=== PATIENT | female | born 1955 | race Caucasian/White ===

== ENCOUNTER → 2017-11-27 | Outpatient (CLI) | payer BC ==
[~2017-11-27] MED LIST: Z.0.NO CURRENT MEDS
--- NOTE | 2017-11-28 | EKG ---
Date Performed: 11/27/2017 Time Performed: 09:11:36 PTAGE: 62 years EKG: Sinus rhythm WITH SINUS ARRHYTHMIA BORDERLINE LEFT AXIS DEVIATION LOW QRS VOLTAGE IN PRECORDIAL LEADS INCOMPLETE RIGHT BUNDLE BRANCH BLOCK BORDERLINE ECG Compared to PREVIOUS TRACING , rate has increased, and IRBBB DOCTOR: Warner Sargent Interpretating Date/Time 11/27/2017 23:59:21
== END ==
LOC: CPRE 08:58
PROVIDERS: ATTEND Orthopaedic Surgery
DX: Z01.810 Encounter for preprocedural cardiovascular examination (principal); M17.12 Unilateral primary osteoarthritis, left knee; M79.609 Pain in unspecified limb; M71.22 Synovial cyst of popliteal space [Baker], left knee; I45.10 Unspecified right bundle-branch block
CPT/HCPCS: 93005

== ENCOUNTER 2017-12-12 07:00 | Inpatient (IN) | payer BC ==
[~2017-12-12] VITALS: Ht 167.6 cm; Wt 71.6 kg
[2017-12-12] MEDS ORDERED: FAT EMULSION 20% INJ 0 ML ONE (08:19)
[2017-12-12] MEDS ORDERED: TRANEXAMIC ACID INJ 716 MG in SODIUM CHLORIDE 0.9% INJ 100 ML IV SCH ×2 (08:30→09:15)
[2017-12-12] MEDS ORDERED: EXPAREL PERI-ARTICULAR INJECTION (TOTAL VOL. 100 ML) P-ARTICULR SCH ×2 (08:30)
[2017-12-12] MEDS ORDERED: TRANEXAMIC ACID IV SCH (08:30)
[2017-12-12] MEDS ORDERED: CHLORHEXIDINE GLUCONATE 4% SOLN 120 ML BTL TOPICAL SCH (08:30)
[2017-12-12] MEDS ORDERED: SODIUM CHLORIDE 0.9% IV SCH (08:30)
[2017-12-12 08:32] VITALS: PULSE 60
[2017-12-12] MEDS ORDERED: SODIUM CHLORID 0.9% 500 ML IV PRN (08:45)
[2017-12-12] MEDS ORDERED: LACTATED RINGER'S 1000 ML IV PRN (08:45)
[2017-12-12] MEDS ORDERED: ceFAZolin 2 GM in NS 100 ML IV SCH (08:45)
[2017-12-12] MEDS ORDERED: CHLORHEXIDINE GLUCONATE 2 % 1 PACK (2 CLOTHS) TOPICAL PRN (08:45)
[2017-12-12] MEDS ORDERED: INSULIN HUMAN REGULAR 1,000 UNITS/10 ML VIAL SQ PRN (08:45)
[2017-12-12] MEDS ORDERED: POVIDONE IODINE 5% (ANTISEPSIS KIT) 4 APPLICATIONS EACH NARE PRN (08:45)
[2017-12-12] MEDS ORDERED: METOPROLOL TARTRATE 25 MG TAB PO PRN (08:45)
[2017-12-12] MEDS ORDERED: GENTAMICIN SULFATE 80 MG/2 ML VIAL ONE (09:21)
[2017-12-12] MEDS ORDERED: BUPIVACAINE LIPOSOME PF 1.3% 20 ML VIAL ONE (09:51)
[2017-12-12] MEDS ORDERED: MIDAZOLAM HCL 2 MG/2 ML VIAL ONE (09:51)
[2017-12-12] MEDS ORDERED: ONDANSETRON HCL 4 MG/2 ML VIAL IVP PRN (10:00)
[2017-12-12] MEDS ORDERED: MAGNESIUM HYDROXIDE SUSP 30 ML CUP PO PRN (10:00)
[2017-12-12] MEDS ORDERED: ZOLPIDEM TARTRATE 5 MG TAB PO PRN (10:00)
[2017-12-12] MEDS ORDERED: TRANEXAMIC ACID INJ 0 MG in SODIUM CHLORIDE 0.9% INJ 100 ML IV SCH (10:00)
--- NOTE | 2017-12-12 10:02 | HHI.FF ---
Face to Face Verification Diagnosis: (1) Status post total left knee replacement Physical Therapy Gait training Knee: Total knee, Protocol: Left, Gait training, Full weight bearing Left LE Weight Bearing: WB as tolerated Left LE Range of Motion: Active ROM (Active, active assisted, passive range of motion. Range of motion goal is 0 extension to 135 of flexion. Range of motion in the operating room was 0 extension to 150 of flexion.) Nursing Nursing: Dressing changes Dressing Changes: Daily dressing change, Coverderm/Primapore Additional Instructions Do not remove Dermabond Prineo. I have seen patient John Hdz on 12/12/17. My clinical findings support the need for the requested home health care services because: Ltd mobility - disease progression Limited ability to care for self High risk of falls I certify that my clinical findings support that this patient is homebound because: Post-op weakness Unsteady gait/balance Unsafe to leave home unassisted Leann Villalobos MD (Charles) December 12, 2017 10:02
[2017-12-12] MEDS ORDERED: ECASA81 PO (10:03)
[2017-12-12] MEDS ORDERED: BUPIVACAINE PF 0.75% DEX-WATER INJ 2 ML AMP ONE (10:05)
[2017-12-12] MEDS ORDERED: ACETAMINOPHEN 1000 MG/100 ML 100 ML IV ONE (10:05)
[2017-12-12] MEDS ORDERED: PROPOFOL 500 MG/50 ML INJ 100 ML ONE (10:07)
[2017-12-12] MEDS ORDERED: LIDOCAINE HCL 1% PF 5 ML AMPULE ONE (10:18)
[2017-12-12] MEDS ORDERED: ceFAZolin 2 GM PREMIX 50 ML ONE (10:24)
[2017-12-12] MEDS ORDERED: Post-op Orders (for Pharmacy) XX ONE (11:00)
[2017-12-12] MEDS ORDERED: HYDROmorphone HCL PF 0.5 MG/0.5 ML SYRINGE IV PUSH PRN (12:00)
[2017-12-12] MEDS ORDERED: traMADol HCL 50 MG TAB PO PRN ×2 (12:00)
[2017-12-12] MEDS ORDERED: KETOROLAC TROMETHAMINE 30 MG/ML (IVP) VIAL IVP SCH (12:00)
[2017-12-12] MEDS ORDERED: diphenhydrAMINE HCL 50 MG/ML VIAL ONE (13:00)
--- NOTE | 2017-12-12 13:06 | PD.OP ---
Operative Report Date of Surgery: December 12, 2017 Preoperative Diagnosis: (1) Primary osteoarthritis of left knee Postoperative Diagnosis: (1) Primary osteoarthritis of left knee Procedure: Left total knee arthroplasty using Allison Triathlon prosthesis (noncemented) Anesthesia: Spinal with supplemental adductor canal block regional and local with Exparel Surgeon: Trevor Villalobos MD Composition Worker(s): JIA Christian Operation and Findings: Indications and Findings: This 62-year-old woman has had long-standing pain in her left knee which has been treated with nonsteroidal anti-inflammatory agents exercises arthroscopic surgery and has not gotten any improvement. She has had pain in the knee predominantly in the patellofemoral joint but also medially. Imaging studies show some patellofemoral degenerative change particularly on the MRI that shows loss of articular cartilage to expose subchondral bone. The medial compartment also had areas of change that was significant. Operative findings: There was loss of articular cartilage to expose subchondral bone in the patellofemoral joint particularly on the medial side. There is also loss of articular cartilage to expose subchondral bone in the lateral aspect of the medial femoral condyle. There are degenerative changes throughout the knee with osteophytes as well. The prosthesis used was a Allison Triathlon prosthesis. The femur was a size 6, cruciate retaining, uncemented. The tibial baseplate was a size 5 Tritanium with a 9 mm cruciate retaining X3 polyethylene spacer. The patella was a size 35 mm asymmetric Tritanium backed. The patient was brought to the clean-air operating suite. A spinal anesthetic was administered as well as a regional anesthetic by adductor canal block. The position was supine with a small bolster under the hip on the operative side. A pneumatic tourniquet was applied to the upper thigh. The lower extremity was then prepped with alcohol, Hibiclens and ChloraPrep and draped in the usual manner with the knee draped free. An appropriate timeout procedure was carried out. An incision was made from about 3 fingerbreadths above the superior medial pole of patella down the tibial tubercle on the medial side. The incision was deepened through the subcutaneous tissue to the retinacular structures which were exposed medially and laterally. A medial retinacular incision was then made from the superior middle pole of patella down the tibial tubercle and up into the quadriceps tendon splitting it longitudinally and the medial one third. The patella was reflected. The infrapatellar fat pad was debulked. The anterior cruciate ligament was excised. Medial and lateral meniscectomies were initiated. Fenestrations were made in the distal femur and proximal tibia for intramedullary referencing guides. The distal femoral cutting guide and jig were then assembled for a 5, 8 mm cut. When this was fit position and placed cutting block was stabilized with pins. The jig was removed. The distal femoral cut was then completed with the oscillating saw. The sizing guide was then positioned in place along Whitesides line and the epicondylar axis and stabilized with pins. The femoral size was then determined as noted above. The 4-in-1 cutting block was then positioned in place. Anterior and posterior cuts were made followed by posterior and anterior chamfer cuts taking care to prevent injury to ligamentous structures. Osteophytes were then trimmed from the distal femur. A bone plug was then placed into the fenestration of the distal femur. The proximal tibia was then exposed. The medial and lateral meniscectomies were completed. The proximal tibial cutting guide was then positioned in place and stabilized with a pin for rotation. The depth of cut was then verified with a stylus off the lateral side. The cutting block was stabilized with pins. The jig was removed. The depth of cut was then verified and adjusted appropriately with the use of the spacer block. The proximal tibial cut was then made with the oscillating saw taking care to prevent injury to neurovascular and ligamentous structures. Proximal tibial bone was removed. Local anesthetic was administered with Exparel in the posterior capsule. The tibial baseplate trial was then positioned in place. After verifying the appropriate size, the base plate trial was positioned in place along with its spacer. The femoral component was then impacted into place. The alignment was checked. The tibial baseplate was then pinned in place on the tibia. Attention was directed to the patella. The patella drill guide was positioned in place for the appropriate sized patella. Patellar drilling was then carried out. The trial patella was positioned in place. The knee was taken through a range of motion which was easily 0 extension to 150 of flexion. The patella trial was removed. The femoral drill holes were made. The femoral trials were removed. The tibial spacer was removed. A bone plug was placed into the proximal tibia. The tibial punch was impacted through the proximal tibial punch guide. This was all removed followed by placement of the tibial drill guide. The tibial drill holes were then made. The guide was removed. The cut ends of bone were then cleaned with pulse lavage. The tibial baseplate was then impacted into place and seated appropriately. The spacer was inserted. The the femoral component was then impacted into place and seated appropriately. The patella component was then seated with the patellar vice and tightened appropriately. The knee was taken through a range of motion which was comparable to the previous range of motion with excellent stability in flexion and extension and appropriate patellofemoral tracking. The remainder of the Exparel was then injected throughout the knee as a local anesthetic. Drains were brought out the superior lateral aspect of the suprapatellar pouch. Wound closure then commenced using 0 Vicryl interrupted [id number] sutures for the capsular and fascial structures, 2-0 Vicryl interrupted simple sutures with buried knots for the subcutaneous tissues and 4- 0 Monocryl, continuous subcuticular closure for the skin. The wound was then dressed with Dermabond Prineo followed by Optifoam silver impregnated dressing. Sterile soft roll with a cooling pad and Dom bandage from the base of the toes to mid thigh were then applied. Patient was then transferred from the operating room to the recovery room in satisfactory condition having tolerated procedure well. Counts are correct. Specimens: None. Estimated blood loss: 200 mL Leann Villalobos MD ([place]) December 12, 2017 13:05
[2017-12-12] MEDS: LACTATED RINGER'S 1000 ML INJ 1,000 ML IV SCH ×2 (13:45→23:30)
[2017-12-12] MEDS ORDERED: DO NOT ADM ANY ANTICOAGULANT DRUGS PRN (13:45)
--- NOTE | 2017-12-12 14:08 | RADRPT ---
EXAM DATE/TIME: 12/12/2017 13:35 [facility] COMPARISON: No previous studies available for comparison. INDICATIONS : Post op left knee MEDICAL HISTORY : None. SURGICAL HISTORY : left knee replaced ENCOUNTER: Subsequent ACUITY: 1 day PAIN SCORE: 5/10 LOCATION: Left knee FINDINGS: Two view examination of the left knee demonstrates total knee arthroplasty. All 3 components are in p osition. Suprapatellar PASQUALE type drain is in place. CONCLUSION: Appropriate postoperative appearance of the left knee status post total arthroplasty. Luis Tian MD on December 12, 2017 at 14:05 Board Certified Radiologist. This report was verified electronically.
[2017-12-12 20:00] VITALS: BP_SYST 123; BP_SYST 127; BP_DIAS 70; BP_DIAS 72; PULSE 64; PULSE 75; RESP 17; RESP 18; TEMP 97.9; TEMP 98.3; O2SAT 98
[2017-12-12] MEDS: KETOROLAC TROMETHAMINE 30 MG/ML (IVP) VIAL IVP SCH (20:18)
[2017-12-13] VITALS: BP 111/68; PULSE 70; RESP 18; TEMP 98.5; O2SAT 99
[2017-12-13] MEDS: KETOROLAC TROMETHAMINE 30 MG/ML (IVP) VIAL IVP SCH ×3 (03:52→12:02)
[2017-12-13 04:00] VITALS: BP 111/57; PULSE 64; RESP 18; TEMP 98.1; O2SAT 98
[2017-12-13 05:12] LABS: HEMATOCRIT 30.6 % (35.0-46.0); HEMOGLOBIN 10.5 GM/DL (11.6-15.3)
--- NOTE | 2017-12-13 06:56 | PD.ORT.PN ---
Subjective Post Op Day #: 1 Subjective Remarks She is doing very well. She has had almost no pain. She walked independently for 3 entire length of the hallway last night. She is ready to go home. The drain came out last night accidentally. Range of Motion 0 of extension to 92 of flexion. Distance Walked 20 feet with PT. Objective Vitals Vital Signs Date Time Temp Pulse Resp B/P (MAP) Pulse Ox O2 Delivery O2 Flow Rate FiO2 12/13/17 04:00 98.1 64 18 111/57 (75) 98 12/13/17 00:00 98.5 70 18 111/68 (82) 99 12/12/17 20:00 97.9 75 17 127/72 (90) 98 12/12/17 20:00 98.3 64 18 123/70 (87) 98 12/12/17 17:00 68 14 127/59 (81) 99 Room Air 12/12/17 16:00 76 14 122/56 (78) 99 Room Air 12/12/17 15:00 59 14 123/63 (83) 100 Room Air 12/12/17 14:30 62 14 105/56 (72) 99 Room Air 12/12/17 14:15 55 14 120/56 (77) 97 Room Air 12/12/17 14:00 60 14 124/58 (80) 99 Room Air 12/12/17 13:45 54 14 122/58 (79) 99 Room Air 12/12/17 13:24 97.9 70 14 114/79 (91) 100 Room Air 12/12/17 08:33 97.9 55 18 126/62 (83) 98 12/12/17 08:32 60 12/12/17 08:32 100 Nasal Cannula 2 I/O 12/12/17 12/12/17 12/12/17 12/13/17 12/13/17 12/13/17 07:00 15:00 23:00 07:00 15:00 23:00 Intake Total 1600 ml 460 ml 460 ml Output Total 200 ml 590 ml 140 ml Balance 1400 ml -130 ml 320 ml Intake Oral 460 ml 460 ml Other 1600 ml Output Urine Total 350 ml Drainage Total 240 ml 140 ml Estimated Blood Loss 200 ml # Voids 3 # Bowel Movements 0 Result Diagram: 12/13/17 0443 Imaging Last 24 hours Impressions Knee X-Ray 12/12/17 0974 Signed Impressions: Service Date/Time: Tuesday, December 12, 2017 13:35 - CONCLUSION: Appropriate postoperative appearance of the left knee status post total arthroplasty. Luis Tian MD Objective Remarks She is resting comfortably, supine in bed, in the CPM. The dressing is dry and intact. Her neurovascular status is intact. Assessment & Plan Ortho Post Op Day #: 1 Problem List: (1) Primary osteoarthritis of left knee ICD Codes: M17.12 - Unilateral primary osteoarthritis, left knee Status: Resolved (2) Status post total left knee replacement ICD Codes: Z96.652 - Presence of left artificial knee joint Plan: Continue postop care and PT. Assessment and Plan Condition: Good. Orthopedically stable. DVT prophylaxis: TEDs, aspirin, sequentials. Discharge plans: Home with home health care today. An appointment was scheduled through the office. Prescriptions: Tramadol 50 mg Leann Villalobos MD (Charles) December 13, 2017 06:56
[2017-12-13] MEDS ORDERED: TRAM50 PO (07:22)
--- NOTE | 2017-12-13 07:26 | HHI.DS ---
Discharge Summary Admission Date December 12, 2017 at 07:22 Discharge Date: December 13, 2017 Admitting Diagnosis Primary osteoarthritis, left knee. Diagnosis: (1) Primary osteoarthritis of left knee Diagnosis: Principal ICD Codes: M17.12 - Unilateral primary osteoarthritis, left knee Status: Resolved (2) Status post total left knee replacement Diagnosis: Principal ICD Codes: Z96.652 - Presence of left artificial knee joint Procedures Left total knee arthroplasty with Allison Triathlon prosthesis (uncemented) on Brief History This is a 62 year old female patient has had long-standing arthritis in her left knee predominantly in the patellofemoral joint. This is been treated with anti-inflammatory agents, injections, arthroscopic surgery and analgesics. She has not responded to conservative measures. Physical findings showed crepitation on range of motion with tenderness on range of motion and antalgic gait. Imaging studies showed degenerative changes in the knee predominantly in the patellofemoral and medial compartment CBC/BMP: 12/13/17 0443 Significant Findings Laboratory Tests Test 12/13/17 04:43 Hemoglobin 10.5 GM/DL (11.6-15.3) Hematocrit 30.6 % (35.0-46.0) Imaging Last 72 hours Impressions Knee X-Ray 12/12/17 0954 Signed Impressions: Service Date/Time: Tuesday, December 12, 2017 13:35 - CONCLUSION: Appropriate postoperative appearance of the left knee status post total arthroplasty. Luis Tian MD PE at Discharge She is resting comfortably, supine in bed, in the CPM. The dressing is dry and intact. Her neurovascular status is intact. Hospital Course The patient was admitted as noted above. The above noted operative procedure was carried out that day. Preoperatively prophylactic antibiotics were administered Ancef according to protocol. These were continued postoperatively. The patient also received tranexamic acid to help with hemostasis according to protocol. In the postanesthesia care unit a continuous passive motion device was initiated. Also initiated were mechanical methods of DVT prophylaxis in the form of WILLIAMS stockings and sequentials. Physical therapy was initiated on the day of surgery. She also walked independently the full length of the halls 3 times. The evening of surgery, her drain inadvertently came out. On postoperative day #1 physical therapy continued. The use of the continuous passive motion device continued. DVT prophylaxis with aspirin 81 mg twice daily was initiated at this time. The patient continued physical therapy throughout the hospitalization. The distance walked and range of motion improved throughout the hospitalization. The patient was discharged on postoperative day 1 with the disposition being to home with home health care. An appointment for follow-up was made prior to admission. Pt Condition on Discharge: Good Discharge Disposition: Disch w/ Home Health Serv Discharge Instructions Diet Instructions: As Tolerated, No Restrictions Activities You Can Perform: Full Weight Bearing, Shower Only-No Bath Activities to Avoid: Lifting/Bending, Strenuous Activity, Bathing, Driving Follow up Referrals: Orthopedics with Leann Villalobos MD (Charles) New Medications: Aspirin DR (Aspirin DR) 81 Mg Tabdr 81 MG PO BID for Prevent Blood Clot for 30 Days, #60 TAB Tramadol (Ultram) 50 Mg Tab 50 MG PO Q4H PRN for PAIN SCALE 1 TO 10, #30 TAB Leann Villalobos MD (Charles) December 13, 2017 07:26
[2017-12-13] MEDS: LACTATED RINGER'S 1000 ML INJ 1,000 ML IV SCH (07:33)
[2017-12-13 08:00] VITALS: BP 98/52; PULSE 63; RESP 18; TEMP 98.3; O2SAT 98
[2017-12-13 09:24] VITALS: BP 100/48
--- NOTE | 2017-12-13 11:49 | PD.CONS ---
HPI Service [facility] Hospitalists Consult Requested By Dr. Villalobos Reason for Consult Medical Management Primary Care Physician Rip Rodriguez MD Diagnoses: (1) Primary osteoarthritis of left knee (2) Status post total left knee replacement History of Present Illness 62-year-old female with history of osteoarthritis admitted to [facility] for left total knee arthroplasty by Dr. Villalobos on 12/12. Hospitalist consulted for medical management. Patient denies any significant past medical history except for multiple reported surgical history. Patient seen on postop day 1. She reports overnight she had an episode where she was sitting in the bedside chair, became dizzy and diaphoretic with near syncope. RN reports her blood pressure was in the 60s/40s at the time. She was placed back in bed and blood pressures improved. Patient's symptoms resolved. She denies ever having any chest pain, palpitations, or shortness of breath. She states this has happened after prior surgeries and resolved on its own. She believes it was related to the anesthesia. Currently she feels completely back to normal. Denies any lightheadedness or dizziness. She has been able to ambulate the hallways without any difficulty. She is tolerating oral intake. Blood pressure improved to 100/50s which she states is normal for her. She wants to go home. She has been cleared for discharge by orthopedics. Review of Systems Except as stated in HPI: all other systems reviewed are Neg Past Family Social History Allergies: Coded Allergies: Sulfa (Sulfonamide Antibiotics) (Unverified Allergy, Unknown, 03/22/17) adhesive (Unverified Allergy, Unknown, 11/27/17) can tolerate paper tape codeine (Unverified Allergy, Unknown, 03/22/17) latex (Unverified Allergy, Unknown, 03/22/17) morphine (Unverified Allergy, Unknown, 03/22/17) Past Medical History Osteoarthritis Past Surgical History Patient reports extensive surgical history, 53 surgeries total including: Cervical fusion Laparoscopic cholecystectomy Lumpectomy Bilateral mastectomy Hysterectomy with bilateral salpingo-oophorectomy Multiple knee arthroscopies Right hand repair with screws Bilateral epicondylectomy Reported Medications Denies taking any medications on a regular basis. Active Ordered Medications Current Medications Medications (Trade) Dose Ordered Sig/Toyin Route Start Time Stop Time Status Last Admin (Hibiclens 4% Top Soln) 1 applic ONCE TOPICAL 12/12/17 08:30 12/15/17 08:29 12/12/17 08:20 Cefazolin Sodium 2000 mg/Sodium Chloride 100 ml @ 200 mls/hr OIL PROGRAM COMPLIANCE SPECIALIST IV 12/12/17 08:45 12/17/17 08:44 Lactated Ringer's 1,000 ml @ 30 mls/hr Q24H PRN IV 12/12/17 08:45 12/15/17 08:44 12/12/17 08:25 Sodium Chloride 500 ml @ 30 mls/hr [id number] PRN IV 12/12/17 08:45 12/15/17 08:44 (Lopressor) 25 mg OIL PROGRAM COMPLIANCE SPECIALIST PRN PO 12/12/17 08:45 12/15/17 08:44 (Betadine 5% Antisepsis Kit) 1 applic OIL PROGRAM COMPLIANCE SPECIALIST PRN EACH NARE 12/12/17 08:45 12/15/17 08:44 12/12/17 08:25 (Chlorhexidine 2% Cloth) 3 pack OIL PROGRAM COMPLIANCE SPECIALIST PRN TOPICAL 12/12/17 08:45 12/15/17 08:44 12/12/17 08:10 (NovoLIN R INJ) See Protocol Table ... OIL PROGRAM COMPLIANCE SPECIALIST PRN SQ 12/12/17 08:45 12/15/17 08:44 Lactated Ringer's 1,000 ml @ 80 mls/hr [id number] IV 12/12/17 11:00 12/12/17 13:45 (Dilaudid Pf Inj) 1 mg Q3H PRN IV PUSH 12/12/17 12:00 (Ultram) 50 mg Q4H PRN PO 12/12/17 12:00 (Ultram) 100 mg Q4H PRN PO 12/12/17 12:00 (Zofran Inj) 4 mg Q6H PRN IVP 12/12/17 10:00 (Colace) 100 mg BID PO 12/13/17 21:00 (Ambien) 5 mg HS PRN PO 12/12/17 10:00 (Milk Of Magnesia Liq) 30 ml DAILY PRN PO 12/12/17 10:00 (Ecotrin Ec) 81 mg BID PO 12/13/17 12:00 ([facility] Nursing Information) ALL NURSING DEPARTME... UNSCH PRN .XX 12/12/17 13:45 12/13/17 13:44 (Toradol Inj) 15 mg Q6H IVP 12/12/17 20:00 12/14/17 14:01 12/13/17 07:20 Family History Mother with lung cancer, smoker Father with severe arthritis Social History Denies any tobacco, alcohol, or illicit drug use. Physical Exam Vital Signs Vital Signs Date Time Temp Pulse Resp B/P (MAP) Pulse Ox O2 Delivery O2 Flow Rate FiO2 12/13/17 09:24 100/48 (65) 12/13/17 08:00 98.3 63 18 98/52 (67) 98 12/13/17 04:00 98.1 64 18 111/57 (75) 98 12/13/17 00:00 98.5 70 18 111/68 (82) 99 12/12/17 20:00 97.9 75 17 127/72 (90) 98 12/12/17 20:00 98.3 64 18 123/70 (87) 98 12/12/17 17:00 68 14 127/59 (81) 99 Room Air 12/12/17 16:00 76 14 122/56 (78) 99 Room Air 12/12/17 15:00 59 14 123/63 (83) 100 Room Air 12/12/17 14:30 62 14 105/56 (72) 99 Room Air 12/12/17 14:15 55 14 120/56 (77) 97 Room Air 12/12/17 14:00 60 14 124/58 (80) 99 Room Air 12/12/17 13:45 54 14 122/58 (79) 99 Room Air 12/12/17 13:24 97.9 70 14 114/79 (91) 100 Room Air Physical Exam GENERAL: Well-nourished, well-developed pleasant middle-age female patient in [facility]. SKIN: Warm and dry. No rash. HEAD: Normocephalic. Atraumatic. EYES: Pupils equal and round. No scleral icterus. No injection or drainage. ENT: No nasal bleeding or discharge. Mucous membranes pink and moist. NECK: Supple. Trachea midline. CARDIOVASCULAR: Regular rate and rhythm. No murmur appreciated. RESPIRATORY: No accessory muscle use. Clear to auscultation. Breath sounds equal bilaterally. GASTROINTESTINAL: Abdomen soft, non-tender, nondistended. Normoactive bowel sounds x4. MUSCULOSKELETAL: No obvious deformities. Extremities without clubbing, cyanosis , or edema. Left anterior knee surgical dressing in place, CDI. NEUROLOGICAL: Awake and alert. No obvious cranial nerve deficits. Motor grossly within normal limits. Moving all extremities spontaneously. Normal speech. PSYCHIATRIC: Appropriate mood and affect; insight and judgment normal. Laboratory Laboratory Tests Test 12/13/17 04:43 Hemoglobin 10.5 Hematocrit 30.6 Result Diagram: 12/13/17 0443 Imaging Last Impressions Knee X-Ray 12/12/17 0954 Signed Impressions: Service Date/Time: Tuesday, December 12, 2017 13:35 - CONCLUSION: Appropriate postoperative appearance of the left knee status post total arthroplasty. Luis Tian MD Assessment and Plan Assessment and Plan 62-year-old female with history of osteoarthritis admitted to [facility] for left total knee arthroplasty by Dr. Villalobos on 12/12. Hospitalist consulted for medical management. Osteoarthritis s/p Left TKA: by Dr. Villalobos on 12/12. -Continue pain control with tramdol 50mg q4h prn per ortho -DVT prophylaxis per ortho, on aspirin 81mg bid -Continue PT, plan for d/c with [facility] Hypotension/Near Syncope: patient with brief episode of hypotension BP 60/40s last night, with dizziness/diaphoresis. Now resolved. -suspect secondary to anesthesia and pain medications -patient feels completely back to normal, BP improved to baseline 100/50s -symptoms resolved, stable for discharge DVT Prophylaxis: per ortho Discussed Condition With Patient, Lupis Lopez PA-C December 13, 2017 11:49 am
[2017-12-13 12:00] VITALS: BP 105/58; PULSE 77; RESP 18; TEMP 98.6; O2SAT 98
[2017-12-13] MEDS ORDERED: ASPIRIN EC 81 MG TABEC PO SCH (12:00)
[2017-12-13] MEDS ORDERED: DOCUSATE SODIUM 100 MG CAP PO SCH (21:00)
== END 2017-12-13 12:44 | disposition home health service (06) | DRG 470 ==
LOC: HSDI 07:22 → N06B 17:20
PROVIDERS: ADMIT Orthopaedic Surgery; ATTEND Orthopaedic Surgery
PROC: 3E0T3BZ Introduction of Anesthetic Agent into Peripheral Nerves and Plexi, Percutaneous Approach (ICD-10-PCS; 2017-12-12)
PROC: 0SRD0JA Replacement of Left Knee Joint with Synthetic Substitute, Uncemented, Open Approach (ICD-10-PCS; principal; 2017-12-12 10:27)
DX: M17.12 Unilateral primary osteoarthritis, left knee (principal); M25.762 Osteophyte, left knee; I95.2 Hypotension due to drugs; T40.605A Adverse effect of unspecified narcotics, initial encounter; Y92.230 Patient room in hospital as the place of occurrence of the external cause; T88.59XA Other complications of anesthesia, initial encounter; Z90.13 Acquired absence of bilateral breasts and nipples; Z98.1 Arthrodesis status; Z85.3 Personal history of malignant neoplasm of breast
CPT/HCPCS: 73560; 85014; 85018; 86850; 86900; 86901; 94150; C1776; C9290; J0131; J0690; J1200; J1580; J1885; J2250; J7120